=== PATIENT | male | born 1985 | race Caucasian/White ===

== ENCOUNTER 2017-02-18 07:45 | Emergency (ER) | payer MEDICAID ==
--- NOTE | 2017-02-18 08:34 | RAD ---
Indication: Seizures. Single frontal view of the chest performed at 0820 hours was reviewed. No prior study is available for comparison. No mediastinal shift is noted. Heart is of normal size and configuration. Lung wen appear clear. IMPRESSION: NO ACTIVE CARDIOPULMONARY DISEASE IS NOTED.
[2017-02-18 08:50] LABS: Hematocrit 47 % (42-52); Hemoglobin 15.8 g/dl (14.0-18.0); Mean Corpuscular HGB Conc 34 g/dl (31-36); Mean Corpuscular Hemoglobin 29 pg (27-31); Mean Corpuscular Volume 85 fL (80-94); Mean Platelet Volume 8 um3 (7.4-10.4); Red Blood Count 5.46 10^6/ul (4.0-5.4); Red Cell Distribution Width 14 % (10.5-15); White Blood Count 10.3 10^3/ul (3.5-10.8)
[2017-02-18 09:06] LABS: ALT 23 U/L (7-52); AST 20 U/L (13-39); Albumin 4.1 g/dL (3.2-5.2); Alkaline Phosphatase 115 U/L (34-104); Anion Gap 4 mmol/L (2-11); BUN/Creatinine Ratio 7.8 (8-20); Blood Urea Nitrogen 11 mg/dL (6-24); CO2 Carbon Dioxide 24 mmol/L (22-32); Calcium 9.5 mg/dL (8.6-10.3); Chloride 110 mmol/L (101-111); EGFR African American 75.4 (>60); EGFR Non-African American 58.6 (>60); Globulin 3.1 g/dL (2-4); Glucose 93 mg/dL (70-100); Magnesium 2.1 mg/dL (1.9-2.7); Potassium 3.7 mmol/L (3.5-5.0); Sodium 138 mmol/L (133-145); Total Protein 7.2 g/dL (6.4-8.9)
[2017-02-18 09:41] LABS: Alcohol < 10 mg/dL (<10)
[2017-02-18 09:55] LABS: TSH (Thyroid Stimulating Horm) 1.48 mcIU/mL (0.34-5.60)
[2017-02-18 10:17] LABS: Urine Bilirubin Negative (Negative); Urine Glucose Negative (Negative); Urine Nitrite Negative (Negative)
[2017-02-18 10:35] LABS: Benzodiazepine Urine Screen None Detected (None Detect)
[2017-02-18 12:56] VITALS: BP 108/70
[2017-02-19 10:50] LABS: Levetiracetam 85.7 mcg/mL
[2017-02-20 09:28] LABS: Topiramate 7.8 mcg/mL
--- NOTE | 2017-02-21 13:29 | ED ---
Veronica Craig Thomas, scribed for Dakota Benedict MD on 02/18/17 at 0911 . Neurological HPI - HPI Summary HPI Summary: The pt is a 31 y/o M with a Hx of epilepsy BIBA after he had five witnessed seizures that began this morning at 06:35. He is on Keppra 1000mg BID and Topiramate 50mg BID. The patients neurologist is in [place], [place]. He was referred to the ED by his neurologist. He is accompanied by his family. - History of Current Complaint Chief Complaint: EDSeizure Stated Complaint: SEIZURE Time Seen by Provider: 02/18/17 08:13 Hx Obtained From: Patient Onset/Duration: Started hours ago - onset today at 06:35, Resolved Number of Seizures: 5 - witnessed Pain Intensity: 6 Pain Scale Used: 0-10 Numeric Frequency: Episodes x___ - 5 Aggravating: Nothing Alleviating: Spontanious Resolution Related Hx: Seizure - epilepsy - Allergy/Home Medications Allergies/Adverse Reactions: Allergies Allergy/AdvReac Type Severity Reaction Status Date / Time Penicillins [PCN] Allergy Anaphylatic Verified 02/18/17 07:52 Shock Wheat Bran Allergy Blisters Verified 02/18/17 07:52 Home Medications: Home Medications Topiramate TAB(*) [Topamax 100 mg tab] 100 mg PO BID 02/18/17 [History Confirmed 02/18/17] levETIRAcetam TAB* [Keppra TAB*] 1,500 mg PO BID 02/18/17 [History Confirmed ] PMH/Surg Hx/FS Hx/Imm Hx Previously Healthy: No Endocrine/Hematology History: Denies: Hx Diabetes Neurological History: Reports: Hx Seizures Infectious Disease History: No Infectious Disease History: Denies: Traveled Outside the [place] in Last 30 Days - Family History Known Family History: Positive: Other - Patient denies relevant FHx - Social History Lives: With Family Alcohol Use: None Substance Use Type: Reports: None Smoking Status (MU): Never Smoked Tobacco Review of Systems Negative: Fever Neurological: Other - Seizures x5 All Other Systems Reviewed And Are Negative: Yes Physical Exam - Summary Physical Exam Summary: VITAL SIGNS: Reviewed. GENERAL: Patient is a well-developed and nourished male who is lying comfortable in the stretcher. Patient is not in any acute respiratory distress. HEAD AND FACE: No signs of trauma. No ecchymosis, hematomas or skull depressions. No sinus tenderness. EYES: PERRLA, EOMI x 2, No injected conjunctiva, no nystagmus. EARS: Hearing grossly intact. Ear canals and tympanic membranes are within normal limits. MOUTH: Oropharynx within normal limits. NECK: Supple, trachea is midline, no adenopathy, no JVD, no carotid bruit, no c- spine tenderness, neck with full ROM. CHEST: Symmetric, no tenderness at palpation LUNGS: Clear to auscultation bilaterally. No wheezing or crackles. CVS: Regular rate and rhythm, S1 and S2 present, no murmurs or gallops appreciated. ABDOMEN: Soft, non-tender. No signs of distention. No rebound no guarding, and no masses palpated. Bowel sounds are normal. EXTREMITIES: FROM in all major joints, no edema, no cyanosis or clubbing. NEURO: Alert and oriented x 3. No acute neurological deficits. Speech is normal and follows commands. SKIN: Dry and warm Triage Information Reviewed: Yes Vital Signs On Initial Exam: Initial Vitals Temp Pulse Resp BP Pulse Ox 98.1 F 64 19 126/91 99 02/18/17 07:49 02/18/17 07:49 02/18/17 07:49 02/18/17 07:49 02/18/17 07:49 Vital Signs Reviewed: Yes - [place] Coma Scale Coma Scale Total: 15 Diagnostics - Vital Signs Vital Signs Temp Pulse Resp BP Pulse Ox 02/18/17 07:49 98.1 F 64 19 126/91 99 - Laboratory Lab Results: Lab Results 02/18/17 02/18/17 02/18/17 Range/Units 08:40 08:40 08:40 WBC 10.3 (3.5-10.8) 10^3/ul RBC 5.46 H (4.0-5.4) 10^6/ul Hgb 15.8 (14.0-18.0) g/dl Hct 47 (42-52) % MCV 85 (80-94) fL MCH 29 (27-31) pg MCHC 34 (31-36) g/dl RDW 14 (10.5-15) % Plt Count 212 (150-450) 10^3/ul MPV 8 (7.4-10.4) um3 Neut % (Auto) 70.7 (38-83) % Lymph % (Auto) 21.6 L (25-47) % [place] % (Auto) 6.5 (1-9) % Eos % (Auto) 0.9 (0-6) % Baso % (Auto) 0.3 (0-2) % Absolute Neuts (auto) 7.3 (1.5-7.7) 10^3/ul Absolute Lymphs (auto) 2.2 (1.0-4.8) 10^3/ul Absolute Monos (auto) 0.7 (0-0.8) 10^3/ul Absolute Eos (auto) 0.1 (0-0.6) 10^3/ul Absolute Basos (auto) 0 (0-0.2) 10^3/ul Absolute Nucleated RBC 0.01 10^3/ul Nucleated RBC % 0 Sodium 138 (133-145) mmol/L Potassium 3.7 (3.5-5.0) mmol/L Chloride 110 (101-111) mmol/L Carbon Dioxide 24 (22-32) mmol/L Anion Gap 4 (2-11) mmol/L BUN 11 (6-24) mg/dL Creatinine 1.41 H (0.67-1.17) mg/dL Est GFR ( Amer) 75.4 (>60) Est GFR (Non-Af Amer) 58.6 (>60) BUN/Creatinine Ratio 7.8 L (8-20) Glucose 93 (70-100) mg/dL Lactic Acid 0.8 (0.5-2.0) mmol/L Calcium 9.5 (8.6-10.3) mg/dL Magnesium 2.1 (1.9-2.7) mg/dL Total Bilirubin 0.50 (0.2-1.0) mg/dL AST 20 (13-39) U/L ALT 23 (7-52) U/L Alkaline Phosphatase 115 H (34-104) U/L Total Protein 7.2 (6.4-8.9) g/dL Albumin 4.1 (3.2-5.2) g/dL Globulin 3.1 (2-4) g/dL Albumin/Globulin Ratio 1.3 (1-3) TSH Pending Serum Alcohol Pending Result Diagrams: 02/18/17 08:40 02/18/17 08:40 Lab Statement: Any lab studies that have been ordered have been reviewed, and results considered in the medical decision making process. - Radiology CXR Xray Interpretation: No Acute Changes - NO ACTIVE CARDIOPULMONARY DISEASE IS NOTED. ED physician has reviewed this report and agrees. Radiology Interpretation Completed By: Radiologist - EKG 08:22 Cardiac Rate: NL EKG Rhythm: Sinus Rhythm EKG Interpretation: [address] elevations. Normal axis. Course/Dx - Course Assessment/Plan: The pt is a 31 y/o M with a Hx of epilepsy BIBA after he had five witnessed seizures that began this morning at 06:35. He is on Keppra 1000mg BID and Topiramate 50mg BID. The patients neurologist is in [place], [place]. He was referred to the ED by his neurologist. He is accompanied by his family. Test results are without significant abnormalities. Urinalysis is negative for UTI. CXR shows no active cardiopulmonary disease is noted. We tried to contact the patients neurologist; however, we were not successful. Therefore, I decided to discuss the case with Dr. Stewart, and he recommends increasing the Keppra at night from 1000mg to 1500mg. The patient agrees and understands. He will be discharged home with follow up by neurology. - Diagnoses Provider Diagnoses: Seizures - Physician Notifications Discussed Care Of Patient With: Eyad Stewart Time Discussed With Above Provider: 12:06 Instructed by Provider To: Other - Dr. Stewart, neurology, recommends increasing the patient's Keppra to 1000mg in the morning and 1500mg at night. He can be safely discharged. Discharge - Discharge Plan Condition: Stable Disposition: HOME Patient Education Materials: Epilepsy (ED) Referrals: Eyad Stewart MD [Medical Doctor] - 3 Days Tayo Ba MD [Medical Doctor] - 3 Days Additional Instructions: Follow up at Dr. Ba's office in thee days. I have given you a referral to see Dr. Stewart as well. Your Keppra dosage has been increased to 1,000mg in the morning and 1500mg at night. Return to the emergency department for any new or worsening symptoms. The documentation as recorded by the Veronica allison Thomas accurately reflects the service I personally performed and the decisions made by me, Dakota Benedict MD.
== END 2017-02-18 12:55 | disposition home or self-care (01) ==
LOC: ED 07:45
DX: G40.909 Epilepsy, unspecified, not intractable, without status epilepticus (principal)
CPT/HCPCS: 36415; 71010; 80053; 80177; 80201; 80307; 80320; 81003; 83605; 83735; 84443; 85025; 85610; 93005; 99283; G0480